=== PATIENT | male | born 1955 | race Caucasian/White ===

== ENCOUNTER 2017-05-14 13:34 | Emergency (ER) | payer SELFPAY ==
[~2017-05-14] VITALS: Ht 172.7 cm; Wt 74.1 kg
[~2017-05-14 13:34] MED LIST: AMOXICILLIN500 M1 PO; CORTISPORIN-TC10 M1 LEFT EAR; FLOXIN OTIC SOLN5 ML LEFT EAR; LISINOPRIL-HCT1 EACH PO; MOTRIN600 MG PO
[2017-05-14] MEDS ORDERED: CLINDAMYCIN HC300 MG PO (15:31)
[2017-05-14 15:59] VITALS: BP 116/76
[2017-05-15] MEDS ORDERED: CEFTIN250 MG PO (17:56)
[2017-05-15] MEDS ORDERED: PERCOCET 5/31 TABLET PO (17:57)
== END 2017-05-14 15:59 | disposition home or self-care (01) ==
LOC: EME 13:34
DX: K04.7 Periapical abscess without sinus (principal); K02.9 Dental caries, unspecified; I10 Essential (primary) hypertension; F17.200 Nicotine dependence, unspecified, uncomplicated
CPT/HCPCS: 99281; 99284

== ENCOUNTER 2017-05-15 17:21 | Emergency (ER) | payer SELFPAY ==
[~2017-05-15] VITALS: Ht 172.7 cm; Wt 75.1 kg
[~2017-05-15 17:21] MED LIST changes: +CLINDAMYCIN HC300 MG PO
[2017-05-15] MEDS ORDERED: CEFTIN250 MG PO (17:56)
[2017-05-15] MEDS ORDERED: PERCOCET 5/31 TABLET PO (17:57)
[2017-05-15 18:54] VITALS: BP 164/102
== END 2017-05-15 18:56 | disposition home or self-care (01) ==
LOC: EME 17:21
DX: K04.7 Periapical abscess without sinus (principal); I10 Essential (primary) hypertension; F17.200 Nicotine dependence, unspecified, uncomplicated
CPT/HCPCS: 99281; 99284; J0696

== ENCOUNTER 2017-06-12 10:30 | Emergency (ER) | payer SELFPAY ==
[~2017-06-12] VITALS: Ht 172.7 cm; Wt 73.0 kg
[~2017-06-12 10:30] MED LIST changes: +CEFTIN250 MG PO; +PERCOCET 5/31 TABLET PO
[2017-06-12 11:48] VITALS: BP 146/92
== END 2017-06-12 11:49 | disposition home or self-care (01) ==
LOC: EME 10:30
DX: J10.1 Influenza due to other identified influenza virus with other respiratory manifestations (principal); I10 Essential (primary) hypertension; F17.200 Nicotine dependence, unspecified, uncomplicated
CPT/HCPCS: 87502; 99281; 99284